=== PATIENT | male | born 1985 | race Caucasian/White ===

== ENCOUNTER → 2019-05-09 10:31 | Outpatient (CLI) | payer OTHER, SELFPAY ==
--- NOTE | 2019-05-09 10:56 | DI.ECHO.S_ITS ---
[facility]---------+ [facility] +---------+ : : [address] [address] : : : : [id number] : : : : Phone: [phone]---------+ Echocardiogram Report + + :Name: SHANNAN ORTEGA Study Date: 05/09/2019 Height: 71 in : :[facility] Weight: 290 lb : : Gender: Male BSA: 2.5 m2 : :: 1985 Age: 33 yrs BP: 148/92 mmHg: :Reason For Study: Chest pain : : Performed By: Skyla Polk : :Referring: PALLAVI QUICK : + + Interpretation Summary The left ventricle is normal in size. The ejection fraction is estimated to be 60-65%. The right ventricle is normal in size and function. No significant valvular pathology seen. Procedure: A two-dimensional transthoracic echocardiogram with color flow and Doppler was performed. The study quality was technically adequate. There is no prior echocardiogram noted for this patient. The subcostal views were difficult to obtain and are suboptimal in quality. The patient was in normal sinus rhythm during the exam. Left Ventricle: The left ventricle is normal in size. Left ventricular wall thickness is mildly increased. Proximal septal thickening is noted. There is no echo evidence for significant left ventricular outflow tract obstruction. There is no thrombus. The ejection fraction is estimated to be 60-65%. There are no focal wall motion abnormalities. Diastolic parameters suggest probable normal left ventricular diastolic function and normal filling pressures. Right Ventricle: The right ventricle is normal in size and function. Atria: Both atria are normal in size. There is no Doppler evidence for an interatrial shunt. Mitral Valve: The mitral valve is normal in structure and function. No systolic anterior motion of the mitral valve. There is trace mitral regurgitation. Aortic Valve: The aortic valve is trileaflet. The aortic valve opens well. There is no aortic valve stenosis. No aortic regurgitation is present. Tricuspid Valve: The tricuspid valve is normal in structure and function. There is trace tricuspid regurgitation. Pulmonary artery pressures cannot be estimated because of the lack of a measurable TR jet velocity. Pulmonic Valve: The pulmonic valve is normal in structure and function. There is a trace or physiologic amount of pulmonic regurgitation. Great Vessels: The aortic root is normal size. The ascending aorta is at the upper limits of normal in size. The inferior vena cava was not visualized. Pericardium/ Pleura There is no pericardial effusion. There is an anterior echo-free space consistent with a fat pad. MMode/2D Measurements & Calculations LVIDd: 4.3 cm LVOT diam: 2.2 cm LVIDs: 2.7 cm Ao root diam: 3.3 cm FS: 36.0 % asc Aorta Diam: 3.8 cm EPSS: 0.93 cm Ao Arch Diam (Prox Trans): 3.4 cm IVSd: 1.2 cm LVPWd: 0.82 cm LV garcía. diameter/BSA (cm/m^2): 1.7 LV sys. diameter/BSA (cm/m^2): 1.1 LA A2 area: 20.0 cm2 RA long axis: 4.7 cm LA A4 area: 18.3 cm2 RA area: 16.8 cm2 LA length (vol): 5.2 cm RA vol: 51.1 ml LA vol: 60.1 ml RA : 20.7 ml/m2 LA vol index: 24.3 ml/m2 RVD1 (basal): 4.0 cm TAPSE: 2.2 cm Doppler Measurements & Calculations Ao V2 max: 103.2 cm/sec LVOT Max Brian: 110.4 cm/sec Ao V2 mean: 73.5 cm/sec LV V1 max P.9 mmHg Ao max P.3 mmHg LV V1 VTI: 23.5 cm Ao mean P.4 mmHg VARUN(I,D): 4.2 cm2 Ao V2 VTI: 20.9 cm VARUN(V,D): 4.0 cm2 sev ratio: 1.1 VARUN indexed to BSA (cm^2/m^2): 1.7 MV E max brian: 94.4 cm/sec PA V2 max: 82.1 cm/sec MV A max brian: 71.8 cm/sec PA V2 mean: 55.4 cm/sec MV E/A: 1.3 PA mean P.4 mmHg Med Peak E' Brian: 10.0 cm/sec PA pr(Accel): 22.9 mmHg E/E' med: 9.4 PA Accel Time: 0.12 sec Lat Peak E' Brian: 11.4 cm/sec E/E' lat: 8.3 E/e' average: 8.9 MV dec time: 0.17 sec MV P1/2t: 52.3 msec MV P1/2t max brian: 95.3 cm/sec SV(LVOT): 87.6 ml MVA(P1/2taj): 4.2 cm2 Reading Physician:02:46 PM
== END ==
PROVIDERS: Referring Provider Physician Assistant; Visit Provider Physician Assistant
DX: R07.9 Chest pain, unspecified (principal)
CPT/HCPCS: C8929; Q9957